=== PATIENT | male | born 1935 | race Caucasian/White ===

== ENCOUNTER → 2018-05-01 | Outpatient (CLI) | payer MEDICARE, BC | END | disposition home or self-care (01) | LOC: CFH 13:52 | PROVIDERS: ATTEND Nurse Practitioner Family | DX: J98.2 Interstitial emphysema (principal) | CPT/HCPCS: 71250 ==

== ENCOUNTER 2019-04-27 10:47 | Outpatient (CLI) | payer MEDICARE, BC | END 2019-04-27 23:59 | disposition home or self-care (01) | LOC: CFH 10:47 | PROVIDERS: ATTEND Nurse Practitioner Family | DX: J43.2 Centrilobular emphysema (principal); J98.4 Other disorders of lung | CPT/HCPCS: 71250 ==